=== PATIENT | male | born 1970 | race Caucasian/White ===

== ENCOUNTER 2020-01-12 08:07 | Day surgery (SDC) | payer BC ==
[~2020-01-12 08:07] MED LIST: Lactated Ringers 1,000 ML IV SCH; Sodium Chloride 0.9% 10 ML Syringe FLUSH PRN
[2020-01-12] MEDS ORDERED: Propofol 200 MG/20 ML SDV IV ONE (08:08)
[2020-01-12] MEDS ORDERED: Midazolam 1 MG/ML 2 ML SDV IV ONE (08:08)
--- NOTE | 2020-01-12 09:58 | PCM.OPNOTE ---
- General Post-Op/Procedure Note Date of Surgery/Procedure: 01/12/20 Operative Procedure(s): c scope Findings: normal exam Pre Op Diagnosis: colon cancer screening Post-Op Diagnosis: Same Anesthesia Technique: MAC Primary Surgeon: Alberto De La Garza Anesthesia Provider: Martita Roa Pathology: none Complications: None Condition: Good Free Text/Narrative:: see dictation
--- NOTE | 2020-01-12 15:18 | OR ---
DATE OF OPERATION: 01/12/2020 SURGEON: Alberto De La Garza MD PROCEDURE PERFORMED: Colonoscopy. PREOPERATIVE DIAGNOSIS: Colon cancer screening. POSTOPERATIVE DIAGNOSIS: Normal exam. INDICATIONS FOR PROCEDURE: This is a 49-year-old white male, who presents for his initial screening colonoscopy. He was offered and accepted same. DESCRIPTION OF OPERATION: After an excellent IV sedation was administered, digital rectal exam was performed. No marked abnormality was noted. Flexible colonoscope was inserted and advanced to the cecum. The prep was excellent. The following findings were noted: Ascending colon, unremarkable. Transverse colon, unremarkable. Descending colon, unremarkable. Sigmoid and rectum, unremarkable. The colon was deflated as the scope was removed. The patient tolerated the procedure well. RECOMMENDATIONS: Repeat colonoscopy in 10 years. /[id number] /[id number]
== END 2020-01-12 10:45 | disposition home or self-care (01) ==
LOC: FB.SDS 08:07
PROVIDERS: ATTEND Surgery
DX: Z12.11 Encounter for screening for malignant neoplasm of colon (principal)
CPT/HCPCS: 00811-QZ; J2250; J2704; J7120